=== PATIENT | male | born 1990 | race Caucasian/White ===

== ENCOUNTER 2017-04-03 18:09 | Emergency (ER) | payer OTHER ==
[2017-04-03] MEDS ORDERED: Proparacaine 0.5% Ophth Soln 15 ML Bottle EYERT ONE (18:33)
--- NOTE | 2017-04-03 19:03 | EDM.PDOC ---
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 The patient doesn't recall any debris coming into his eye nor does he recall any flash injury but he says that that could have happened sometime last week as he was doing a lot of work. He always wear safety glasses when he does his work. He does not wear glasses or contact lenses and has never had any visual issues but has had foreign bodies in his eye in the past due to work. The patient also states that about 4 nights ago his daughter was playing with him and she threw a leg oh which hit him in the same right eye is concerned that potentially an injury could be caused by that. Patient does complain that he has photophobia and that when he looked in the mirror he thought he saw a small foreign object/ piece of metal in his eye and since he is seeing that he says he keeps focusing on it and it feels worse. He has had increased tearing from the eye but it is not cloudy there is no eye matting. Review of systems: As per history of present illness and below otherwise all systems reviewed and negative. Past medical history: As per history of present illness and as reviewed below otherwise noncontributory. Surgical history: As per history of present illness and as reviewed below otherwise noncontributory. Social history: No reported history of drug or alcohol abuse. Family history: As per history of present illness and as reviewed below otherwise noncontributory. Physical exam: Gen.: Well-developed well-nourished male who is nontoxic and is no visible facial swelling or swelling of the periorbital or eyelid areas HEENT: Atraumatic, normocephalic, pupils reactive sclera is noninjected and there is no fluoroscopy seen uptake consistent with a corneal abrasion seen on examination, there is a minute punctate black foreign body seen at approximately 630 o'clock on the iris without any scleral laceration, negative for conjunctival pallor or scleral icterus, mucous membranes moist, throat clear , neck supple, nontender, trachea midline. Visual acuity is 20/20 both eyes individually and together. Lungs: Clear to auscultation, breath sounds equal bilaterally, chest nontender. Heart: S1S2, regular rate and rhythm no overt murmurs. Abdomen: Soft, nondistended, nontender. NABS Pelvis: Stable nontender. Genitourinary: Deferred. Rectal: Deferred. Extremities: Atraumatic, negative for cords or calf pain. Neurovascular unremarkable. Neuro: Awake, alert, oriented. Cranial nerves II through XII unremarkable. Cerebellum unremarkable. Motor and sensory unremarkable throughout. Exam nonfocal. Diagnostics: Visual acuity fluorescing stain Therapeutics: [] 185: Case was discussed with our snuff box finisher on-call Dr Monroy; he agrees that he should see this patient tomorrow in his clinic and I'll give the patient that information. As no pharmacies are currently open he agrees with tobramycin ophthalmic drops to be given and I will dispense these via [facility] Impression: Retained foreign body right eye Definitive disposition and diagnosis as appropriate pending reevaluation and review of above. - Related Data Allergies Allergy/AdvReac Type Severity Reaction Status Date / Time No Known Allergies Allergy Verified 04/03/17 18:28 Home Meds: Home Meds . [No Known Home Meds] 04/03/17 [History] Past Medical History - Past Health History Medical/Surgical History: Denies Medical/Surgical History Social & Family History - Family History Family Medical History: Noncontributory - Tobacco Use Smoking Status *Q: Current Every Day Smoker Years of Tobacco use: 5 Packs/Tins Daily: 1 - Recreational Drug Use Recreational Drug Use: No ED ROS GENERAL - Review of Systems Review Of Systems: ROS reveals no pertinent complaints other than HPI. ED EXAM GENERAL W FULL EYE - Physical Exam Exam: See Below (See dictation) Course - Vital Signs Last Recorded V/S: Last Vital Signs Temp 36.3 C 04/03/17 18:09 Pulse 77 04/03/17 18:09 Resp 18 04/03/17 18:09 BP 124/85 04/03/17 18:09 Pulse Ox 99 04/03/17 18:09 - Orders/Labs/Meds Orders: Active Orders 24 hr Category Date Time Status Communication Order [RC] STAT Care 04/03/17 18:34 Active Meds: Medications Discontinued Medications Generic Name Dose Route Start Last Admin Trade Name Ellis ORO Reason Stop Dose Admin Proparacaine HCl 1 ml 04/03/17 18:33 04/03/17 18:39 Proparacaine 0.5% Ophth Soln EYERT 04/03/17 18:34 1 ml ONETIME ONE Administration Departure - Departure Time of Disposition: 19:07 Disposition: Home, Self-Care 01 Condition: Good Clinical Impression: Retained foreign body in eye Qualifiers: Laterality: right Qualified Code(s): H44.701 - Unspecified retained (old) intraocular foreign body, nonmagnetic, right eye; Z18.9 - Retained foreign body fragments, unspecified material - Discharge Information Referrals: PCP,None [Primary Care Provider] - Additional Instructions: The following information is given to patients seen in the emergency department who are being discharged to home. This information is to outline your options for follow-up care. We provide all patients seen in our emergency department with a follow-up referral. The need for follow-up, as well as the timing and circumstances, are variable depending upon the specifics of your emergency department visit. If you don't have a primary care physician on staff, we will provide you with a referral. We always advise you to contact your personal physician following an emergency department visit to inform them of the circumstance of the visit and for follow-up with them and/or the need for any referrals to a consulting specialist. The emergency department will also refer you to a specialist when appropriate. This referral assures that you have the opportunity for followup care with a specialist. All of these measure are taken in an effort to provide you with optimal care, which includes your followup. Under all circumstances we always encourage you to contact your private physician who remains a resource for coordinating your care. When calling for followup care, please make the office aware that this follow-up is from your recent emergency room visit. If for any reason you are refused follow-up, please contact the [facility] emergency department at and ask to speak to the emergency department charge nurse. [facility] [address] [place] [address] Please use eyedrops you have been prescribed, tobramycin, and telemetry were followed up by the snuff box finisher tomorrow. Please call the number above for her clinic appointment with Dr. Monroy as we discussed. Please return to ER as needed and as discussed. - My Orders Last 24 Hours: My Active Orders 04/03/17 18:34 Communication Order [RC] STAT - Assessment/Plan Last 24 Hours: My Active Orders 04/03/17 18:34 Communication Order [RC] STAT
[2017-04-03 19:21] VITALS: BP 139/76
== END 2017-04-03 19:20 | disposition home or self-care (01) ==
LOC: MW.ED 18:09
DX: H44.721 Retained (nonmagnetic) (old) foreign body in iris or ciliary body, right eye (principal); F17.210 Nicotine dependence, cigarettes, uncomplicated; Z18.9 Retained foreign body fragments, unspecified material
CPT/HCPCS: 96361; 96374; 96375; 99283; 99283-25